=== PATIENT | male | born 1970 | race Caucasian/White ===

== ENCOUNTER 2020-09-06 08:20 | Inpatient (IN) | payer OTHER ==
[2020-09-06] MEDS ORDERED: ACETAMINOPHEN 1000 MG/100 ML VIAL (NON FORMULARY) IVPB ONE (08:45)
[2020-09-06] MEDS ORDERED: ONDANSETRON 4 MG/2 ML VIAL IVPUSH ONE (08:45)
[2020-09-06] MEDS ORDERED: LACTATED RINGERS SOLUTION 1000 ML INFUS.BAG IV ONE ×3 (08:45→12:47)
[2020-09-06] MEDS ORDERED: ACETAMINOPHEN INJECTION 100 ML IVPB ONE (09:21)
[2020-09-06] MEDS ORDERED: ONDANSETRON 4 MG/2 ML VIAL ONE (09:22)
[2020-09-06] MEDS ORDERED: SODIUM CHLORIDE 2,109 ML IV ONE (09:33)
[2020-09-06 11:17] LABS: BASO % 0.3 % (0-2.0); EOS % 0.1 % (0-4.5); HEMATOCRIT 31.7 % (35.4-49); HEMOGLOBIN 10.5 GM/dL (11.7-16.9); MCH 29.5 pg (25.7-33.7); MCHC 33.1 g/dl (32.0-35.9); MEAN CELL VOLUME 89.3 fl (80-96); MEAN PLT VOLUME 9.5 fl (7.5-11.1); NEUT % 82.6 % (42.8-82.8); PLATELET COUNT 153 K/MM3 (134-434); RBC 3.55 M/mm3 (4.00-5.60); RDW 13.5 % (11.9-15.9); WHITE BLOOD COUNT 14.4 K/mm3 (4.0-10.0)
[2020-09-06 11:19] LABS: INR 1.1 (0.83-1.09); PROTHROMBIN TIME (PATIENT) 13.3 SEC (9.7-13.0)
[2020-09-06 11:21] LABS: ACTIVATED PTT 24.4 SECONDS (25.2-36.5)
[2020-09-06 11:30] LABS: CHLORIDE 111 mmol/L (98-107); POTASSIUM 3.2 mmol/L (3.5-5.1); SODIUM 143 mmol/L (136-145)
[2020-09-06 11:33] LABS: ANION GAP 6 MMOL/L (8-16); BLOOD UREA NITROGEN 20.2 mg/dL (7-18); CO2 27 mmol/L (21-32); GLUCOSE,RANDOM 104 mg/dL (74-106)
[2020-09-06 11:35] LABS: CREATININE 1.1 mg/dL (0.55-1.3)
[2020-09-06 11:36] LABS: SGOT/AST 14 U/L (15-37); SGPT/ALT 17 U/L (13-61)
[2020-09-06 11:37] LABS: BILIRUBIN,TOTAL 0.6 mg/dL (0.2-1); TOT PROT 5.8 g/dl (6.4-8.2)
[2020-09-06 11:38] LABS: ALK PHOS 78 U/L (45-117)
[2020-09-06 11:41] LABS: VENOUS BASE EXCESS 4.3 mmol/L (-2-2); VENOUS O2 SATURATION 57.4 % (70-80); VENOUS PCO2 54.2 mmHg (38-52); VENOUS PH 7.37 (7.310-7.410)
[2020-09-06 11:52] LABS: CALCIUM 6.9 mg/dL (8.5-10.1)
[2020-09-06] MEDS ORDERED: POTASSIUM CHLORIDE ORAL LIQUID 20 MEQ/15 ML PO ONE (11:53)
[2020-09-06 12:14] LABS: MAGNESIUM 1.2 mg/dL (1.8-2.4)
[2020-09-06] MEDS ORDERED: POTASSIUM CHLORIDE ORAL LIQUID 20 MEQ/15 ML ONE (12:30)
[2020-09-06] MEDS ORDERED: MAGNESIUM SULF 50% (8.12 MEQ/2 ML-1 GM VIAL) IVPB ONE (12:44)
[2020-09-06] MEDS ORDERED: CEFTRIAXONE 1,000 MG in DEXTROSE 5%-WATER - 50 ML IVPB ONE (12:44)
[2020-09-06] MEDS ORDERED: CALCIUM GLUCONATE 10% - 1,000 MG/10 ML VIAL IVPUSH ONE (12:45)
[2020-09-06] MEDS ORDERED: CALCIUM GLUCONATE 10% - 1,000 MG/10 ML VIAL ONE (12:51)
[2020-09-06] MEDS ORDERED: MAGNESIUM 1GM/D5W - 1 GM/100 ML IVPB IVPB ONE (12:52)
[2020-09-06] MEDS ORDERED: cefTRIAXone SODIUM 1 GM VIAL ONE (12:52)
[2020-09-06] MEDS ORDERED: CEFTRIAXONE 1 GM/50 ML BAG ONE (13:53)
[2020-09-06 14:23] LABS: PH,URINE 8.5 (5.0-8.0); URINE APPEARANCE CLEAR; URINE BILIRUBIN NEGATIVE (NEGATIVE); URINE COLOR YELLOW; URINE GLUCOSE (UA) 1+ (NEGATIVE); URINE KETONE NEGATIVE (NEGATIVE); URINE LEUK ESTERASE NEGATIVE (NEGATIVE); URINE NITRITE NEGATIVE (NEGATIVE); URINE PROTEIN NEGATIVE (NEGATIVE); URINE UROBILINOGEN 0.2 mg/dL (0.2-1.0)
[2020-09-06] MEDS: LACTATED RINGERS SOLUTION 1,000 ML IV SCH (23:18)
[2020-09-06] MEDS: oxyCODONE HCL 5 MG TABLET PO PRN (23:24)
[2020-09-07] MEDS ORDERED: PNEUMOC 13-VAL CONJ-DIP CRM/PF 0.5 ML DISP.SYRIN IM ONE (03:26)
[2020-09-07 03:57] VITALS: BMI 24.3
[2020-09-07] MEDS: oxyCODONE HCL 5 MG TABLET PO PRN ×4 (06:11→23:26)
[2020-09-07] MEDS: INSULIN SLIDING SCALE (NOVOLOG) 1 VIAL SQ SCH ×3 (06:12→16:43)
[2020-09-07 07:49] LABS: HEMOGLOBIN 10.7 GM/dL (11.7-16.9)
[2020-09-07 07:57] LABS: BASO % 0.3 % (0-2.0); EOS % 0.9 % (0-4.5); HEMATOCRIT 31.5 % (35.4-49); LYMPH % 15.7 % (8-40); MCH 29.6 pg (25.7-33.7); MCHC 33.9 g/dl (32.0-35.9); MEAN CELL VOLUME 87.1 fl (80-96); MEAN PLT VOLUME 9.4 fl (7.5-11.1); MONO % 6.3 % (3.8-10.2); NEUT % 76.8 % (42.8-82.8); PLATELET COUNT 157 K/MM3 (134-434); RBC 3.62 M/mm3 (4.00-5.60); RDW 13.7 % (11.9-15.9); WHITE BLOOD COUNT 14.1 K/mm3 (4.0-10.0)
[2020-09-07 08:06] LABS: POTASSIUM 4.4 mmol/L (3.5-5.1)
[2020-09-07 08:10] LABS: BLOOD UREA NITROGEN 23.9 mg/dL (7-18); MAGNESIUM 1.9 mg/dL (1.8-2.4)
[2020-09-07 08:13] LABS: PHOSPHOROUS 2.1 mg/dL (2.5-4.9)
[2020-09-07 08:14] LABS: CREATININE 1.2 mg/dL (0.55-1.3)
[2020-09-07 08:15] LABS: BILIRUBIN,TOTAL 0.8 mg/dL (0.2-1); TOT PROT 6.3 g/dl (6.4-8.2)
[2020-09-07 08:26] LABS: CALCIUM 8.1 mg/dL (8.5-10.1)
[2020-09-07 08:29] LABS: INR 1.15 (0.83-1.09); PROTHROMBIN TIME (PATIENT) 14.1 SEC (9.7-13.0)
[2020-09-07] MEDS ORDERED: DEXTROSE 5%-WATER - 50 ML IVPB ONE (08:46)
[2020-09-07] MEDS ORDERED: PT OWN MED DRAWER 7, Y5N ONE (08:46)
[2020-09-07] MEDS ORDERED: cefTRIAXone SODIUM 1 GM VIAL ONE (08:46)
[2020-09-07] MEDS: LACTATED RINGERS SOLUTION 1,000 ML IV SCH ×2 (09:18→22:50)
[2020-09-07] MEDS: ENOXAPARIN NA (PORCINE) 40 MG/0.4 ML DISP.SYRIN SQ SCH (09:20)
[2020-09-07 09:35] LABS: ACTIVATED PTT 25.8 SECONDS (25.2-36.5)
[2020-09-07] MEDS ORDERED: CEFTRIAXONE 1 GM in DEXTROSE 5%-WATER - 50 ML IVPB SCH (10:00)
[2020-09-07] MEDS ORDERED: PNEUMOCOCCAL 23 VACCINE 0.5 ML VIAL IM ONE (10:00)
[2020-09-07 11:50] LABS: ERYTHROCYTE SEDIMENTATION RATE 29 mm/hr (0-20)
[2020-09-07 20:07] LABS: COCAINE, UR NEGATIVE ng/ml (CUTOFF=300); METHADONE, UR NEGATIVE ng/ml (CUTOFF=300); OPIATES, URI NEGATIVE ng/ml (CUTOFF=300); URINE AMPHETAMINES NEGATIVE ng/ml (CUTOFF=500); URINE BARBITURATES NEGATIVE ng/ml (CUTOFF=200); URINE BENZODIAZEPINES NEGATIVE ng/ml (CUTOFF=200)
[2020-09-07 20:09] LABS: PHENCYCLIDINE,URINE NEGATIVE ng/ml (CUTOFF=25)
[2020-09-07] MEDS: ACETAMINOPHEN 1000 MG/100 ML VIAL (NON FORMULARY) IVPB PRN (21:19)
[2020-09-07] MEDS ORDERED: INSULIN (LEVEMIR) 100 UNITS/ML UNITS SQ SCH (22:00)
[2020-09-08] MEDS: oxyCODONE HCL 5 MG TABLET PO PRN (05:39)
[2020-09-08] MEDS: INSULIN SLIDING SCALE (NOVOLOG) 1 VIAL SQ SCH ×2 (06:08→11:45)
[2020-09-08 06:35] VITALS: BP 123/79; PULSE 69; TEMP 98.1
[2020-09-08] MEDS: ENOXAPARIN NA (PORCINE) 40 MG/0.4 ML DISP.SYRIN SQ SCH (09:19)
[2020-09-08] MEDS ORDERED: PANTOPRAZOLE 20 MG TABLET PO SCH (10:00)
[2020-09-08 12:23] LABS: HEMATOCRIT 29.2 % (35.4-49); HEMOGLOBIN 10.2 GM/dL (11.7-16.9); MCH 30.3 pg (25.7-33.7); MCHC 34.8 g/dl (32.0-35.9); MEAN PLT VOLUME 9.4 fl (7.5-11.1); PLATELET COUNT 141 K/MM3 (134-434); RBC 3.36 M/mm3 (4.00-5.60); RDW 13.2 % (11.9-15.9)
[2020-09-08] MEDS: ACETAMINOPHEN 1000 MG/100 ML VIAL (NON FORMULARY) IVPB PRN (12:30)
== END 2020-09-08 17:56 | disposition home or self-care (01) | DRG 872 ==
LOC: JER 08:20 → JERBED 13:13 → J7W 18:55
PROVIDERS: ADMIT Internal Medicine; ATTEND Internal Medicine
DX: A41.9 Sepsis, unspecified organism (principal); A08.4 Viral intestinal infection, unspecified; E87.6 Hypokalemia; E83.42 Hypomagnesemia; E83.39 Other disorders of phosphorus metabolism; E83.51 Hypocalcemia; E87.8 Other disorders of electrolyte and fluid balance, not elsewhere classified; M25.561 Pain in right knee; E11.65 Type 2 diabetes mellitus with hyperglycemia
CPT/HCPCS: 36415; 71045-TC-FY; 73562-TC-RT-FY; 74177-TC; 80053; 80307; 81003; 82010; 82150; 82306; 82550; 82728; 82803; 82962; 83605; 83615; 83690; 83735; 83970; 84100; 84443; 84484; 85025; 85027; 85379; 85610; 85651; 85730; 86140; 86850; 86900; 86901; 87040; 87804; 90732; 93005; 93010; 97161-GP; 99285-25; C9803; G0009; J0131; Q9967; U0003